=== PATIENT | male | born 1990 | race African-American/Black ===

== ENCOUNTER 2018-09-03 08:31 | Emergency (ER) | payer OTHER ==
[2018-09-03 08:49] VITALS: BP 139/90; PULSE 112; TEMP 100.3; BMI 20.7
[2018-09-03] MEDS ORDERED: ACETAMINOPHEN 325 MG TABLET (FP) PO ONE (08:57)
[2018-09-03] MEDS ORDERED: ACETAMINOPHEN 325 MG TABLET (FP) ONE (09:04)
--- NOTE | 2018-09-03 09:04 | PDOC ---
History of Present Illness - General Chief Complaint: Sore Throat Stated Complaint: PATIENT HERE FOR NECK PAIN X 1 DAY Time Seen by Provider: 09/03/18 08:53 History Source: Patient Exam Limitations: Clinical Condition - History of Present Illness Initial Comments: 09/03/18 09:02 Patient with no significant past medical history present with complaint of sore throat, fever, nasal congestion and painful to swallow this yesterday. Patient reported taking Tylenol last night for fever. Did not take anything for fever today. Denies nausea, vomiting, abdominal pain, dizziness. Denies any other symptoms Timing/Duration: 24 hours Past History - Past Medical History Allergies/Adverse Reactions: Allergies Allergy/AdvReac Type Severity Reaction Status Date / Time No Known Allergies Allergy Verified 09/03/18 08:45 Home Medications: Ambulatory Orders Amox-Tr/K Cl [Augmentin - 875Mg Tablet] 1 tab PO BID #14 tablet 09/03/18 predniSONE [Deltasone -] 10 mg PO BID 4 Days #8 tablet 09/03/18 COPD: No - Immunization History Immunization Up to Date: Yes - Suicide/Smoking/Psychosocial Hx Smoking History: Never smoked Hx Alcohol Use: No Drug/Substance Use Hx: No Review of Systems - Review of Systems Able to Perform ROS?: Yes Is the patient limited [place] proficient: No Constitutional: Yes: Chills, Fever. No: Weakness HEENTM: Yes: Symptoms Reported, See HPI, Throat Pain, Difficulty Swallowing. No : Eye Pain, Blurred Vision, Tearing, Recent change in vision, Double Vision, Cataracts, Ear Pain, Ocular Prothesis, Ear Discharge, Nose Pain, Nose Congestion , Tinnitus, Nose Bleeding, Hearing Loss, Throat Swelling, Mouth Pain, Dental Problems, Mouth Swelling, Other Respiratory: No: Symptoms reported, See HPI, Cough, Orthopnea, Shortness of Breath, SOB with Exertion, SOB at Rest, Stridor, Wheezing, Productive cough, Hemoptysis, Other Cardiac (ROS): No: Symptoms Reported, See HPI, Chest Pain, Edema, Irregular Heart Rate, Lightheadedness, Palpitations, Syncope, Chest Tightness, Other ABD/GI: No: Constipated, Diarrhea, Nausea, Vomiting, Abdominal cramping All Other Systems: Reviewed and Negative *Physical Exam - Vital Signs Last Vital Signs Temp Pulse Resp BP Pulse Ox 100.3 F H 112 H 18 139/90 97 09/03/18 08:45 09/03/18 08:45 09/03/18 08:45 09/03/18 08:45 09/03/18 08:45 - Physical Exam Comments: 09/03/18 09:04 GENERAL: Well developed, well nourished. Awake and alert. No acute distress. HEENT: Normocephalic, atraumatic. PERRLA, EOMI. No conjunctival pallor. Sclera are non-icteric. Moist mucous membranes. Oropharynx is clear. NECK: Supple. Full ROM. CARDIOVASCULAR: Regular rate and rhythm. No murmurs, rubs, or gallops. Distal pulses are 2+ and symmetric. PULMONARY: No evidence of respiratory distress. Lungs clear to auscultation bilaterally. No wheezing, rales or rhonchi. ABDOMINAL: Soft. Non-tender. Non-distended. No rebound or guarding. No organomegaly. Normoactive bowel sounds. MUSCULOSKELETAL Normal range of motion at all joints. EXTREMITIES: No cyanosis. No clubbing. No edema. SKIN: Warm and dry. Normal capillary refill. No rashes. No jaundice. NEUROLOGICAL: Alert, awake, appropriate. Gait is normal without ataxia. PSYCHIATRIC: Cooperative. Good eye contact. Appropriate mood General Appearance: Yes: Nourished, Appropriately Dressed. No: Apparent Distress Medical Decision Making - Medical Decision Making 09/03/18 09:03 Patient with no significant past medical history present with complaint of sore throat, fever, nasal congestion and painful to swallow this yesterday. Patient reported taking Tylenol last night for fever. Did not take anything for fever today. Denies nausea, vomiting, abdominal pain, dizziness. Denies any other symptoms. Clinical exam unremarkable except fever of 10 1F. Symptoms likely strep pharyngitis versus viral pharyngitis versus influenza. Rapid strep and rapid flu tests ordered. Tylenol 975 mg by mouth given for fever. Treat based on lab results 09/03/18 09:24 rapid strep positive. rapid flu negative. Patient stable for outpatient management of strep pharyngitis with Augmentin and prednisone with PCP follow-up *DC/Admit/Observation/Transfer Diagnosis at time of Disposition: Strep pharyngitis Fever Qualifiers: Fever type: unspecified Qualified Code(s): R50.9 - Fever, unspecified - Discharge Dispostion Disposition: HOME Condition at time of disposition: Stable Decision to Admit order: No - Prescriptions Prescriptions: Amox-Tr/K Cl [Augmentin - 875Mg Tablet] 1 tab PO BID #14 tablet predniSONE [Deltasone -] 10 mg PO BID 4 Days #8 tablet - Referrals - Patient Instructions Printed Discharge Instructions: Strep Throat Additional Instructions: Your strep was positive. Take prescribed medications and finish it. Increase fluid intake. Take tylenol as needed for fever. Follow-up with PCP as needed - Post Discharge Activity Forms/Work/School Notes: Back to Work
== END 2018-09-03 09:42 | disposition home or self-care (01) ==
LOC: JERFT 08:31
DX: J02.0 Streptococcal pharyngitis (principal); B95.0 Streptococcus, group A, as the cause of diseases classified elsewhere
CPT/HCPCS: 87804; 87880; 99281-25

== ENCOUNTER 2019-03-03 06:55 | Emergency (ER) | payer OTHER ==
[2019-03-03 07:35] VITALS: TEMP 97.8; BMI 30.8
--- NOTE | 2019-03-03 08:17 | PDOC ---
History of Present Illness - General Chief Complaint: Pain Stated Complaint: PAIN LEFT LEG Time Seen by Provider: 03/03/19 07:32 History Source: Patient Exam Limitations: No Limitations - History of Present Illness Initial Comments: 03/03/19 08:12 28-year-old male who presents to ED with complaints of left foot pain upon awakening yesterday morning. Patient initially thought he slept wrong on the area and so took Motrin and continue with his day. Patient states pain continued and this morning the same. Patient states Motrin did not alleviate his discomfort and decided to come to the ER. Patient denies recent injury to the area, recent change in footwear, or change in activity. Patient does state family history (father) has had gout in the past. Patient denies any sensory changes distally of the area but does state throbbing hot feeling to the side of his left foot near his pinky toe extending to his midfoot Is this a multiple visit Asthma Patient?: No Timing/Duration: 24 hours Severity: mild Associated Symptoms: reports: denies symptoms Past History - Travel Traveled outside of the country in the last 30 days: No Close contact w/someone who was outside of country & ill: No - Past Medical History Allergies/Adverse Reactions: Allergies Allergy/AdvReac Type Severity Reaction Status Date / Time No Known Allergies Allergy Verified 03/03/19 07:22 Home Medications: Ambulatory Orders Amox-Tr/K Cl [Augmentin - 875Mg Tablet] 1 tab PO BID #14 tablet 09/03/18 predniSONE [Deltasone -] 10 mg PO BID 4 Days #8 tablet 09/03/18 Colchicine 0.6 mg PO ONCE #1 tablet 03/03/19 Ibuprofen [Motrin -] 600 mg PO TID PRN #21 tablet 03/03/19 COPD: No - Family Medical History Other Family History: Father gout - Immunization History Immunization Up to Date: Yes - Psycho Social/Smoking Cessation Hx Smoking History: Never smoked Information on smoking cessation initiated: No Hx Alcohol Use: No Drug/Substance Use Hx: No Patient Lives Alone: No Lives with/in: spouse/SO Review of Systems - Review of Systems Able to Perform ROS?: Yes Constitutional: No: Symptoms Reported ABD/GI: No: Nausea Musculoskeletal: Yes: Joint Pain (Left foot) Integumentary: Yes: Other (Warm feeling to area) Neurological: No: Numbness, Tingling, Weakness Hematologic/Lymphatic: No: Symptoms Reported *Physical Exam - Vital Signs Last Vital Signs Temp Pulse Resp BP Pulse Ox 97.8 F 80 17 150/80 100 03/03/19 07:22 03/03/19 07:22 03/03/19 07:22 03/03/19 07:22 03/03/19 07:22 - Physical Exam General Appearance: Yes: Nourished, Appropriately Dressed. No: Apparent Distress Vascular Pulses: Doralis-Pedis (L): 2+ Extremity: positive: Normal Capillary Refill, Normal Range of Motion, Tender ( Left midfoot over the fifth toe extending to midfoot). negative: Normal Inspection (Mild erythema to the lateral aspect of fifth metatarsal dorsally extending to right fifth digit of left foot) Integumentary: positive: Erythema. negative: Swelling Neurologic: positive: Motor Strength 5/5 (Ambulatory with limp) ED Treatment Course - LABORATORY CBC & Chemistry Diagram: 03/03/19 08:10 - RADIOLOGY Radiology Studies Ordered: Category Date Time Status FOOT-LEFT [RAD] Stat Radiology 03/03/19 07:32 Taken Medical Decision Making - Medical Decision Making 03/03/19 08:16 Chief complaint: Left foot pain since yesterday unrelieved with Motrin. Father with history of gout Exam. Patient tender over the left fifth toe extending to the midfoot dorsally with mild erythema and mild increased warmth to area Plan: CBC, uric acid and foot x-ray ordered 03/03/19 09:16 X-ray otherwise negative for acute pathology noted bunion on the first metatarsal. 03/03/19 09:16 Laboratory Tests 03/03/19 03/03/19 08:10 08:10 WBC 6.8 Hgb 14.4 Hct 44.1 Neutrophils % 58.4 Monocytes % 15.3 H Uric Acid 9.1 H patient will be given 1.2 mg of colchicine here in the ER then discharge home 0.6 mg to take 1 hour after. Patient also given NSAID Motrin 600 mg Discharge - Discharge Information Problems reviewed: Yes Clinical Impression/Diagnosis: Gout Condition: Good Disposition: HOME - Additional Discharge Information Prescriptions: Colchicine 0.6 mg PO ONCE #1 tablet Ibuprofen [Motrin -] 600 mg PO TID PRN #21 tablet PRN Reason: Pain - Follow up/Referral Referrals: Sid Mullins [Primary Care Provider] - - Patient Discharge Instructions Patient Printed Discharge Instructions: DI for Gout, Gout (Alternative Therapy) Additional Instructions: Please take 0.6 mg of colchicine 1 hour after initial dose given in the ER. You may take Motrin 600 mg 3 times a day for discomfort. Please read over information in regards to gout. - Post Discharge Activity Work/Back to School Note: Back to Work
[2019-03-03 08:31] LABS: BASO % 0.2 % (0-2.0); HEMATOCRIT 44.1 % (35.4-49); HEMOGLOBIN 14.4 GM/dL (11.7-16.9); LYMPH % 23.1 % (8-40); MCH 30.6 pg (25.7-33.7); MCHC 32.8 g/dl (32.0-35.9); MEAN CELL VOLUME 93.3 fl (80-96); MEAN PLT VOLUME 9.9 fl (7.5-11.1); MONO % 15.3 % (3.8-10.2); NEUT % 58.4 % (42.8-82.8); PLATELET COUNT 262 K/MM3 (134-434); RBC 4.73 M/mm3 (4.00-5.60); RDW 13.5 % (11.9-15.9); WHITE BLOOD COUNT 6.8 K/mm3 (4.0-10.0)
[2019-03-03] MEDS ORDERED: COLCHICINE 0.6 MG CAP PO ONE (09:10)
[2019-03-03] MEDS ORDERED: COLCHICINE 0.6 MG CAP ONE (09:34)
[2019-03-03 09:43] VITALS: BP 142/88; PULSE 76
== END 2019-03-03 09:40 | disposition home or self-care (01) ==
LOC: JER 06:55
DX: M10.9 Gout, unspecified (principal)
CPT/HCPCS: 36415; 73630-TC-LT; 84550; 85025; 99282-25

== ENCOUNTER 2022-01-14 18:43 | Emergency (ER) | payer OTHER ==
[2022-01-14 18:53] VITALS: BP 142/73; PULSE 74; RESP 18; TEMP 98.9; BMI 33.9
[2022-01-14] MEDS ORDERED: IBUPROFEN 600 MG TABLET (FP) PO ONE ×2 (19:44→19:46)
== END 2022-01-14 20:41 | disposition home or self-care (01) ==
LOC: JERFT 18:43
DX: M25.531 Pain in right wrist (principal)
CPT/HCPCS: 73110-TC-RT-FY; 73130-TC-RT-FY; 99284-25